=== PATIENT | female | born 1995 | race African-American/Black ===

== ENCOUNTER → 2018-10-07 | Outpatient (CLI) | payer OTHER ==
--- NOTE | 2018-10-07 16:49 | REP ---
Clinical: Pre-employment evaluation . Comparison: None . Technique: PA and lateral. Findings: The mediastinum and cardiac silhouette are normal. The lung phillips are clear and without acute consolidation, effusion, or pneumothorax. The skeletal structures are intact and normal. Impression: 1. No acute cardiopulmonary process. Electronically Signed by Sudheer Burnette MD 10/07/2018 04:40 P
== END ==
LOC: M WUC 16:23
PROVIDERS: ATTEND Physician Assistant
DX: Z02.1 Encounter for pre-employment examination (principal); Z11.1 Encounter for screening for respiratory tuberculosis

== ENCOUNTER 2018-11-30 17:57 | Emergency (ER) | payer OTHER, SELFPAY ==
[~2018-11-30] VITALS: Ht 157.5 cm; Wt 76.7 kg
[2018-11-30 19:22] VITALS: BP 118/81
== END 2018-11-30 19:36 | disposition home or self-care (01) ==
LOC: M ED 17:57
DX: S30.814A Abrasion of vagina and vulva, initial encounter (principal); X58.XXXA Exposure to other specified factors, initial encounter; Y92.9 Unspecified place or not applicable; F17.210 Nicotine dependence, cigarettes, uncomplicated

== ENCOUNTER 2019-03-27 22:12 | Emergency (ER) | payer SELFPAY ==
[~2019-03-27] VITALS: Ht 157.5 cm; Wt 78.6 kg
[2019-03-27] MEDS ORDERED: dayquil PO (22:19)
[2019-03-27] MEDS ORDERED: ACET-683 PO (22:19)
[2019-03-27 23:01] LABS: INFLUENZA A AMPLIFICATION POSITIVE (NEGATIVE); INFLUENZA B AMPLIFICATION NEGATIVE (NEGATIVE)
[2019-03-27 23:39] VITALS: BP 120/80
== END 2019-03-27 23:41 | disposition home or self-care (01) ==
LOC: M ED 22:12
DX: J09.X9 Influenza due to identified novel influenza A virus with other manifestations (principal); Z20.828 Contact with and (suspected) exposure to other viral communicable diseases; Z79.899 Other long term (current) drug therapy